=== PATIENT | female | born 1985 | race African-American/Black ===

== ENCOUNTER 2017-05-29 06:12 | Emergency (ER) | payer MEDICAID ==
[~2017-05-29] VITALS: Ht 160 cm; Wt 86.5 kg
[2017-05-29 07:15] LABS: CLARITY URINE CLEAR (CLEAR); COLOR URINE DARK YELLOW (YELLOW); KETONES URINE 2+ (NEGATIVE); LEUKOCYTE ESTERASE URINE NEGATIVE (NEGATIVE); NITRITE URINE NEGATIVE (NEGATIVE); OCCULT BLOOD URINE 1+ (NEGATIVE); PROTEIN URINE NEGATIVE (NEGATIVE)
[2017-05-29] MEDS ORDERED: PENICILLIN G BENZATHINE 1,200,000 UNITS/2ML SYR IM ONE (07:15)
[2017-05-29] MEDS ORDERED: IBUPROFEN 600MG TABLET PO ONE (07:15)
[2017-05-29 08:45] VITALS: BP 115/67
== END 2017-05-29 08:49 | disposition home or self-care (01) ==
LOC: ER 06:12
DX: J03.80 Acute tonsillitis due to other specified organisms (principal); B96.89 Other specified bacterial agents as the cause of diseases classified elsewhere; J39.9 Disease of upper respiratory tract, unspecified; F17.200 Nicotine dependence, unspecified, uncomplicated; F15.10 Other stimulant abuse, uncomplicated; Z98.890 Other specified postprocedural states
CPT/HCPCS: 81003; 81025; 96372; 99283; J0561

== ENCOUNTER 2020-04-24 18:35 | Emergency (ER) | payer MEDICAID ==
[~2020-04-24] VITALS: Ht 160 cm; Wt 90.0 kg
[2020-04-24 19:37] LABS: CLARITY URINE CLEAR (CLEAR); COLOR URINE YELLOW (YELLOW); KETONES URINE TRACE (NEGATIVE); LEUKOCYTE ESTERASE URINE TRACE (NEGATIVE); NITRITE URINE NEGATIVE (NEGATIVE); OCCULT BLOOD URINE 3+ (NEGATIVE); PH URINE 5.5 (4.5-8.0); PROTEIN URINE TRACE (NEGATIVE); SPECIFIC GRAVITY URINE 1.034 (1.005-1.030)
[2020-04-24 19:38] LABS: BASOPHILS % 0.9 % (0.0-2.0); HEMATOCRIT. 38.3 % (36.0-48.0); HEMOGLOBIN. 12.7 g/dL (12.0-16.0); LYMPHOCYTES % 33.5 % (20.0-50.0); MEAN CORPUSCULAR HEMOGLOBIN 29.7 pg (28.0-32.0); MEAN CORPUSCULAR VOLUME 89.6 fL (81.0-99.0); NEUTROPHILS % 57.6 % (40.0-76.0); PLATELET 300 x1000/uL (130-400); RED BLOOD CELL COUNT 4.27 mill/uL (4.2-5.4); RED CELL DISTRIBUTION WIDTH 14.3 % (11.6-14.6)
[2020-04-24 19:42] LABS: CHLORIDE 109 mEq/L (98-107)
[2020-04-24 19:58] LABS: HCG SCREEN NEGATIVE
[2020-04-24] MEDS ORDERED: IBUPROFEN 600MG TABLET PO ONE (21:30)
[2020-04-24 21:37] VITALS: BP 129/77
== END 2020-04-24 21:39 | disposition home or self-care (01) ==
LOC: ER 18:35
DX: N63.0 Unspecified lump in unspecified breast (principal)
CPT/HCPCS: 36415; 76641; 80048; 81003; 81025; 84703; 85025; 93005; 99285